=== PATIENT | male | born 1985 | race Caucasian/White ===

== ENCOUNTER 2016-10-25 17:18 | Emergency (ER) | payer OTHER ==
[~2016-10-25] VITALS: Ht 195.6 cm; Wt 199.6 kg
[~2016-10-25 17:18] MED LIST: ALBUTEROL SULF8.5 GM INH; IBUPROFEN800 MG PO; TRAMADOL HCL50 MG PO; TYLENOL325 MG PO; VOLTAREN-XR100 MG PO
[2016-10-25] MEDS ORDERED: MOBIC7.5 MG PO (17:30)
[2016-10-25] MEDS ORDERED: BACTROBAN15 GM TOP (17:56)
== END 2016-10-25 18:15 | disposition home or self-care (01) ==
LOC: ED 17:18
PROC: 0HQFXZZ Repair Right Hand Skin, External Approach (ICD-10-PCS; principal; 2016-10-25)
DX: S61.210A Laceration without foreign body of right index finger without damage to nail, initial encounter (principal); J45.909 Unspecified asthma, uncomplicated; F17.200 Nicotine dependence, unspecified, uncomplicated; Z88.2 Allergy status to sulfonamides; Z79.899 Other long term (current) drug therapy; W26.0XXA Contact with knife, initial encounter
CPT/HCPCS: 12001; 99283

== ENCOUNTER 2019-11-12 17:27 | Emergency (ER) | payer OTHER ==
[~2019-11-12] VITALS: Ht 195.6 cm; Wt 198.7 kg
[~2019-11-12 17:27] MED LIST changes: +BACTROBAN15 GM TOP; +MOBIC7.5 MG PO
[2019-11-12] MEDS ORDERED: FLUOXETINE HCL20 MG PO (17:46)
[2019-11-12] MEDS ORDERED: MELOXICAM15 MG PO (17:46)
[2019-11-12] MEDS ORDERED: FLUTICASONE PRO16 GM NAS (17:46)
[2019-11-12] MEDS ORDERED: DIAZEPAM5 MG PO (17:47)
[2019-11-12] MEDS ORDERED: ALPRAZOLAM0.25 MG PO (17:47)
[2019-11-12] MEDS ORDERED: ATIVAN1 MG PO (23:05)
== END 2019-11-12 23:16 | disposition home or self-care (01) ==
LOC: ED 17:27
DX: F41.9 Anxiety disorder, unspecified (principal); J45.909 Unspecified asthma, uncomplicated; G43.909 Migraine, unspecified, not intractable, without status migrainosus; F17.200 Nicotine dependence, unspecified, uncomplicated; Z79.899 Other long term (current) drug therapy; Z88.2 Allergy status to sulfonamides
CPT/HCPCS: 99283